=== PATIENT | male | born 1945 | race Caucasian/White ===

== ENCOUNTER → 2020-10-24 08:54 | Outpatient (BNVA) | payer MEDICARE, OTHER, SELFPAY | PROVIDERS: PCP Internal Medicine; Visit Provider Hospitalist | DX: J41.1 Mucopurulent chronic bronchitis (principal); J96.11 Chronic respiratory failure with hypoxia; R91.8 Other nonspecific abnormal finding of lung field; C34.91 Malignant neoplasm of unspecified part of right bronchus or lung | CPT/HCPCS: 99202 ==

== ENCOUNTER 2020-11-04 17:12 | Outpatient (REF) | payer MEDICARE, OTHER, SELFPAY | END 2020-11-04 17:13 | disposition home or self-care (01) | LOC: HO.LNP 17:12 | PROVIDERS: Visit Provider Hospitalist | DX: J44.9 Chronic obstructive pulmonary disease, unspecified (principal) | CPT/HCPCS: 87070; 87205 ==

== ENCOUNTER → 2020-12-07 08:19 | Outpatient (BNVA) | payer MEDICARE, OTHER, SELFPAY | PROVIDERS: PCP Internal Medicine; Visit Provider Hospitalist | DX: J96.11 Chronic respiratory failure with hypoxia (principal); J41.1 Mucopurulent chronic bronchitis; R91.8 Other nonspecific abnormal finding of lung field; C34.91 Malignant neoplasm of unspecified part of right bronchus or lung | CPT/HCPCS: 99212 ==

== ENCOUNTER → 2021-01-16 09:41 | Outpatient (BNVA) | payer MEDICARE, OTHER, SELFPAY | PROVIDERS: Visit Provider Orthopaedic Surgery | DX: G56.03 Carpal tunnel syndrome, bilateral upper limbs (principal); J43.9 Emphysema, unspecified; C34.90 Malignant neoplasm of unspecified part of unspecified bronchus or lung; Z87.891 Personal history of nicotine dependence; Z92.25 Personal history of immunosuppression therapy | CPT/HCPCS: 99202 ==

== ENCOUNTER → 2021-02-06 08:11 | Outpatient (BNVA) | payer MEDICARE, OTHER, SELFPAY | PROVIDERS: PCP Internal Medicine; Visit Provider Hospitalist | DX: J96.11 Chronic respiratory failure with hypoxia (principal); J41.1 Mucopurulent chronic bronchitis; R91.8 Other nonspecific abnormal finding of lung field; C34.91 Malignant neoplasm of unspecified part of right bronchus or lung | CPT/HCPCS: 99212 ==

== ENCOUNTER 2021-02-09 12:33 | Day surgery (SDC) | payer MEDICARE, OTHER, SELFPAY ==
[2021-02-08 09:07] VITALS: BMI 23.3
[2021-02-09 13:01] VITALS: BP 131/69; PULSE 94; RESP 16; TEMP 36.8; O2SAT 96
--- NOTE | 2021-02-09 13:19 | W.PM.OPN ---
Operative Note Operative Note Date of Service: 02/09/21 Narrative: Preop diagnosis: 1. Right Carpal tunnel syndrome Postop diagnosis: same Procedure: 1. Right Carpal tunnel release Surgeon: Sherrell Carbone MD Anesthesia: local block using 1% lidocaine with epinephrine Findings: Thickened transverse carpal ligament. EBL: Less than 5 mL Specimens: None Complications: None Disposition: Brought to recovery room in stable condition Plan: Follow-up for 7-10 days for wound check and suture removal Indications: The patient is 75 years old, with right carpal tunnel syndrome that has been unresponsive to nonoperative management. The risks and benefits of operative treatment including but not limited to risk of damage to blood vessels, nerves, tendons, infection, persistent pain, persistent symptoms, or possible need for additional surgery were discussed with the patient and the patient wishes to proceed with surgery. Procedure: Once consent was obtained a local block was performed using a combination of 1% lidocaine with epinephrine. The patient was then brought back to the operating suite and placed on the operative table in supine position. A tourniquet was applied to the proximal aspect of the right upper extremity and the limb was prepped and draped in a standard surgical fashion. Once assured that we had a good block, a 1.5 cm longitudinal incision was made centered over the carpal tunnel. The incision was made through the skin to the subcutaneous tissues using a #15 blade. Dissection was made down to the level of the transverse carpal ligament with care being taken to protect the palmar cutaneous nerve. Once the transverse carpal ligament was clearly visualized, a longitudinal incision was made in the transverse carpal ligament 1st using a #15 blade, then using tenotomy scissors under direct visualization. Care was taken to look for and protect the motor branch of the median nerve when seen in this area. Once satisfied with our carpal tunnel release the wound was copiously irrigated with normal saline and hemostasis was obtained with a brief period of local pressure. The skin edges were reapproximated with some 5.0 nylon suture material and a sterile dressing was applied. The patient appears to have tolerated the procedure well and with no complications. All digits were well vascularized at the conclusion of the case.
--- NOTE | 2021-02-09 14:59 | MHC.SHP ---
Pre-Procedural Eval Section A Date of Service: 02/09/21 The patient is an INPATIENT: No Changes since office visit: No Cold of Flu in the past 2 weeks, No New Medical Problems, No Changes in Medication and No Patient answered all questions The History & Physical has been completed within 30 days and I have reviewed it.: Yes Section B Chief Complaint: carpal tunnel syndrome Allergies: Allergies Allergy/AdvReac Type Severity Reaction Status Date / Time No Known Allergies Allergy Verified 02/06/21 08:35 Plan I have reviewed the history and physical and performed a pertinent physical examination on my patient. No changes have occurred unless specified.
[2021-02-09 15:29] VITALS: BP 140/68; PULSE 92; RESP 16; TEMP 36.5; O2SAT 94
== END 2021-02-09 15:41 | disposition home or self-care (01) ==
PROVIDERS: PCP Internal Medicine; Visit Provider Orthopaedic Surgery
PROC: (CPT 64721; principal; 2021-02-09 13:40)
DX: G56.01 Carpal tunnel syndrome, right upper limb (principal)
CPT/HCPCS: 64721

== ENCOUNTER → 2021-02-21 09:38 | Outpatient (BNVA) | payer MEDICARE, OTHER, SELFPAY | PROVIDERS: PCP Internal Medicine; Visit Provider Orthopaedic Surgery | DX: G56.03 Carpal tunnel syndrome, bilateral upper limbs (principal) | CPT/HCPCS: 99212 ==

== ENCOUNTER → 2021-07-04 15:34 | Outpatient (BNVA) | payer OTHER, MEDICARE, SELFPAY | PROVIDERS: PCP Internal Medicine; Visit Provider Orthopaedic Surgery ==

== ENCOUNTER 2021-07-27 10:52 | Day surgery (SDC) | payer MEDICARE, OTHER, SELFPAY ==
[2021-07-27 11:21] VITALS: BP 134/85; PULSE 99; RESP 18; TEMP 37.1; O2SAT 98; BMI 23.3
--- NOTE | 2021-07-27 12:47 | MHC.SHP ---
Pre-Procedural Eval Section A Date of Service: 07/27/21 The patient is an INPATIENT: No Changes since office visit: No Cold of Flu in the past 2 weeks, No New Medical Problems, No Changes in Medication and No Patient answered all questions The History & Physical has been completed within 30 days and I have reviewed it.: Yes Section B Chief Complaint: Carpal Tunnel Syndrome Allergies: Allergies Allergy/AdvReac Type Severity Reaction Status Date / Time No Known Allergies Allergy Verified 07/04/21 15:59 Plan I have reviewed the history and physical and performed a pertinent physical examination on my patient. No changes have occurred unless specified.
--- NOTE | 2021-07-27 12:48 | P.OP_ITS ---
Operative Note Operative Note Date of Service: 07/27/21 Narrative: Preop diagnosis: 1. Left Carpal tunnel syndrome Postop diagnosis: same Procedure: 1. left Carpal tunnel release Surgeon: Sherrell Carbone MD Anesthesia: local block using 1% lidocaine with epinephrine Findings: Thickened transverse carpal ligament. EBL: Less than 5 mL Specimens: None Complications: None Disposition: Brought to recovery room in stable condition Plan: Follow-up for 10-14 days for wound check and suture removal Indications: The patient is 68 years old, with left carpal tunnel syndrome that has been unresponsive to nonoperative management. The risks and benefits o f operative treatment including but not limited to risk of damage to blood vessels, nerves, tendons, infection, persistent pain, persistent symptoms, or possible need for additional surgery were discussed with the patient and the patient wishes to proceed with surgery. Procedure: Once consent was obtained a local block was performed using a combination of 1% lidocaine with epinephrine. The patient was then brought back to the operating suite and placed on the operative table in supine position. A tourniquet was applied to the proximal aspect of the left upper extremity and the limb was prepped and draped in a standard surgical fashion. Once assured that we had a good block, a 1.5 cm longitudinal incision was made centered over the carpal tunnel. The incision was made through the skin to the subcutaneous tissues using a #15 blade. Dissection was made down to the level of the transverse carpal ligament with care being taken to protect the palmar cutaneous nerve. Once the transverse carpal ligament was clearly visualized, a longitudinal incision was made in the transverse carpal ligament 1st using a #15 blade, then using tenotomy scissors under direct visualization. Care was taken to look for and protect the motor branch of the median nerve when seen in this area. Once satisfied with our carpal tunnel release the wound was copiously irrigated with normal saline and hemostasis was obtained with a brief period of local pressure. The skin edges were reapproximated with some 5.0 nylon suture material and a sterile dressing was applied. The patient appears to have tolerated the procedure well and with no complications. All digits were well vascularized at the conclusion of the case.
[2021-07-27 13:10] VITALS: BP 129/75; PULSE 88; RESP 16; TEMP 37.1; O2SAT 100
== END 2021-07-27 13:27 | disposition home or self-care (01) ==
PROVIDERS: PCP Internal Medicine; Visit Provider Orthopaedic Surgery
PROC: (CPT 64721; principal; 2021-07-27 12:40)
DX: G56.02 Carpal tunnel syndrome, left upper limb (principal); R20.0 Anesthesia of skin; J44.9 Chronic obstructive pulmonary disease, unspecified; C34.90 Malignant neoplasm of unspecified part of unspecified bronchus or lung; Z87.891 Personal history of nicotine dependence; Z79.899 Other long term (current) drug therapy
CPT/HCPCS: 64721

== ENCOUNTER → 2021-08-09 08:33 | Outpatient (BNVA) | payer MEDICARE, OTHER, SELFPAY | PROVIDERS: PCP Internal Medicine; Visit Provider Hospitalist | DX: Z47.89 Encounter for other orthopedic aftercare (principal); Z86.69 Personal history of other diseases of the nervous system and sense organs; J96.11 Chronic respiratory failure with hypoxia; R04.2 Hemoptysis; J41.1 Mucopurulent chronic bronchitis; R91.8 Other nonspecific abnormal finding of lung field; C34.91 Malignant neoplasm of unspecified part of right bronchus or lung | CPT/HCPCS: 99212 ==

== ENCOUNTER 2021-09-13 09:07 | Outpatient (REF) | payer MEDICARE, OTHER, SELFPAY ==
--- NOTE | ~2021-09-13 | FL_ITS ---
PROCEDURE: FL BARIUM SWALLOW CLINICAL INFORMATION: Gastroesophageal reflux disease without esophagitis. COMPARISON: None TECHNIQUE: Barium swallow examination is performed using fluoroscopic evaluation in addition to multiple fluoroscopic spot views. The patient is imaged both upright and prone and using both thick and thin sulfate along with effervescent granules. Fluoroscopy time: 1.5 minutes DAP: 2.428 Gy-cm2 Images: 43 FINDINGS: Following oral administration of thick barium and effervescent granules there is normal propagation of bolus from the oral cavity through the pharynx, esophagus into stomach without any evidence of obstruction, narrowing or stricture. No laryngeal penetration or aspiration seen. No mucosal abnormality. Especially there is no abnormality seen in the pharynx. There is grade 1 anterolisthesis C3 over C4 with mild ventral spondylosis C4-C5 and C5-C6 disc levels with minimal indentation of cervical posterior esophageal wall. FL/FL barium swallow IMPRESSION: Unremarkable appearance on exam. Especially there is no abnormality seen in the pharynx.
== END 2021-09-13 09:08 | disposition home or self-care (01) ==
LOC: HO.XRAY 09:07
PROVIDERS: Visit Provider Hospitalist
DX: K21.9 Gastro-esophageal reflux disease without esophagitis (principal)
CPT/HCPCS: 74220

== ENCOUNTER → 2021-10-18 10:32 | Outpatient (BNVA) | payer MEDICARE, OTHER, SELFPAY | PROVIDERS: PCP Internal Medicine; Visit Provider Hospitalist | DX: J96.11 Chronic respiratory failure with hypoxia (principal); J41.1 Mucopurulent chronic bronchitis; R91.8 Other nonspecific abnormal finding of lung field; R04.2 Hemoptysis; C34.91 Malignant neoplasm of unspecified part of right bronchus or lung | CPT/HCPCS: 99212 ==

== ENCOUNTER 2021-11-17 12:34 | Outpatient (REF) | payer MEDICARE, OTHER, SELFPAY ==
--- NOTE | ~2021-11-17 | XR_ITS ---
EXAMINATION: XR CHEST CLINICAL INFORMATION: Malignant neoplasm of the right lung. COMPARISON: None TECHNIQUE: 2 views of the chest were obtained. FINDINGS: Ovoid shaped mass in the superior segment right lower lobe the near extension to the peripheral pleural surface. The lesion measures approximately 8.9 x 7.1 x 6 cm in size. Lungs are hyperinflated with flattened diaphragm and increased AP diameter of the chest compatible with COPD. Blunted costophrenic sulci may represent pleural thickening or trace effusions. Attenuation of the right upper lobe pulmonary vascularity compatible with emphysema. Normal heart size. No evidence pulmonary edema no acute osseous injury. Mild multilevel degenerative disc disease. XR/XR chest 2V IMPRESSION: Large ovoid shaped mass affecting the superior segment right lower lobe suspicious for lung neoplasm measuring approximately 8.9 x 7.1 x 6 cm in size. Recommend pulmonary consultation chest CT or PET/CT if not already obtained.
== END 2021-11-17 12:35 | disposition home or self-care (01) ==
LOC: HO.XRAY 12:34
PROVIDERS: PCP Internal Medicine; Visit Provider Hospitalist
DX: C34.91 Malignant neoplasm of unspecified part of right bronchus or lung (principal)
CPT/HCPCS: 71046

== ENCOUNTER → 2022-01-29 08:27 | Outpatient (BNVA) | payer OTHER, SELFPAY | PROVIDERS: PCP Internal Medicine; Visit Provider Hospitalist | DX: J41.1 Mucopurulent chronic bronchitis (principal); J96.11 Chronic respiratory failure with hypoxia; C34.91 Malignant neoplasm of unspecified part of right bronchus or lung; R91.8 Other nonspecific abnormal finding of lung field; Z79.899 Other long term (current) drug therapy; Z99.81 Dependence on supplemental oxygen | CPT/HCPCS: 94618; 99212 ==